=== PATIENT | male | born 1980 | race Caucasian/White ===

== ENCOUNTER 2019-03-07 17:45 | Emergency (ER) | payer SELFPAY ==
[2019-03-07] MEDS ORDERED: Ketorolac Tromethamine 60 MG/2 ML VIAL ONE (18:54)
--- NOTE | 2019-03-07 19:14 | CT ---
LUMBAR SPINE CT WITHOUT CONTRAST: Date: 03-07-19 Comparison: None. History: Injury, trauma, pain. Technique: Axial CT imaging at 2 mm intervals through the lumbar spine with coronal and sagittal refo rmatted imaging. FINDINGS: The imaged lung bases are unremarkable. At T9-10, T10-11, and T11-12 there is disc space narrowing with degenerative endplate change, vacuum disc formation, and posterior osteophyte. Evaluation for central canal and/or neural foraminal stenos is is limited on routine CT examination. Lumbar vertebral body height and alignment appears normal. T12-L1: No osseous cause of significant central canal or neural foraminal stenosis. L1-2: No osseous cause of significant central canal or neural foraminal stenosis. L2-3: No osseous cause of significant central canal or neural foraminal stenosis. L3-4: Mild bilateral facet hypertrophy. No osseous cause of significant central canal or neural leonie inal stenosis. L4-5: Mild bilateral facet hypertrophy with no osseous cause of significant central canal or neural f oraminal stenosis. L5-S1: Mild bilateral facet hypertrophy. No osseous cause of significant central canal or neural fora migue stenosis. No acute fracture or dislocation. IMPRESSION: No acute osseous abnormality. POS: OFF
--- NOTE | 2019-03-07 19:34 | CT ---
CT ABDOMEN AND PELVIS WITHOUT CONTRAST: Date: 03-07-19 Comparison: None. History: Injury. Technique: Axial CT imaging at 5 mm intervals through the abdomen and pelvis without contrast. Minaya l reformatted imaging obtained. FINDINGS: Assessment is limited in the setting of trauma without contrast media. Evaluation of the viscera, bow el, vascular structures and for lymphadenopathy is suboptimal. The imaged lung bases are unremarkable. No free intraperitoneal air is seen. There is a tiny hypodensity in the anterior aspect of the liver on Image 12, too small to characteriz e. The spleen, gallbladder, pancreas, adrenal glands, and kidneys demonstrate no acute findings. Ther e are two nonobstructing stones in the lower pole of the left kidney, measuring up to approximately 4 mm. No evidence for obstructive uropathy is appreciated on either side. Limited assessment of the bowel d emonstrates no acute findings. Review of the osseous structures demonstrates no acute findings. IMPRESSION: 1. No acute findings. Incidental findings as detailed above. POS: OFF
== END 2019-03-07 19:12 | disposition home or self-care (01) ==
LOC: MADERS 17:45
DX: S30.0XXA Contusion of lower back and pelvis, initial encounter (principal); I10 Essential (primary) hypertension; G43.909 Migraine, unspecified, not intractable, without status migrainosus; F31.9 Bipolar disorder, unspecified; F90.9 Attention-deficit hyperactivity disorder, unspecified type; F43.10 Post-traumatic stress disorder, unspecified; F17.210 Nicotine dependence, cigarettes, uncomplicated; Z79.899 Other long term (current) drug therapy; W19.XXXA Unspecified fall, initial encounter; Y92.000 Kitchen of unspecified non-institutional (private) residence as the place of occurrence of the external cause
CPT/HCPCS: 72131; 74176; 96372; J1885

== ENCOUNTER 2024-05-18 06:42 | Emergency (ER) | payer OTHER, SELFPAY ==
[2024-05-18 08:11] LABS: Hematocrit 50.4 % (42.0-52.0); Hemoglobin 15.9 g/dL (14.0-18.0); Manual Diff?? YES; Mean Corpuscular HGB CONC 31.5 g/dL (32.0-36.0); Mean Corpuscular Hemoglobin 28.1 pg (27.0-31.0); Mean Corpuscular Volume 89.1 fl (78.0-98.0); Mean Platelet Volume 6.9 fL (7.4-10.4); Platelet Count 304 10x3/uL (130-400); RBC Distribution Width 12.3 % (11.5-14.5); Red Blood Cell (RBC) Count 5.66 mill/uL (4.70-6.10); White Blood Cell (WBC) Count 9.2 10x3/uL (4.8-10.8)
[2024-05-18 08:12] LABS: Band 2 % (5-11); Eosinophils 3 % (0-10); Lymphocytes 26 % (21-51); MDiff Complete? YES; Monocytes 5 % (0-10); Neutrophil 64 % (42-75); Platelet Adequacy Comment Appears Adequate; RBC Morph Comment Within Normal Limits
[2024-05-18 08:16] LABS: ALT (SGPT) 30 U/L (8-55); AST (SGOT) 33 U/L (5-34); Albumin 4.3 g/dL (3.5-5.0); Alkaline Phosphatase 91 U/L (40-110); Anion Gap 16 mmol/L (10-20); BUN (Urea Nitrogen) 25 mg/dL (8.9-20.6); Bilirubin, Total 0.4 mg/dL (0.2-1.2); CK (CPK) 160 U/L (30-200); Calc. Creatinine Clearance 0 mL/min (70-130); Calcium 10.5 mg/dL (7.8-10.44); Carbon Dioxide 21 mmol/L (22-29); Chloride 103 mmol/L (98-107); Estimated GFR 100; Globulin 3.6 g/dL (2.4-3.5); Glucose 153 mg/dL (70-105); Magnesium 2.1 mg/dL (1.6-2.6); Potassium 5.1 mmol/L (3.5-5.1); Protein, Total 7.9 g/dL (6.0-8.3); Sodium 135 mmol/L (136-145)
[2024-05-18 08:19] LABS: Phosphorus 3.4 mg/dL (2.3-4.7)
[2024-05-18] MEDS ORDERED: Sodium Chloride 0.9% 1,000 ML ONE (08:26)
== END 2024-05-18 09:38 | disposition home or self-care (01) ==
LOC: MADERS 06:42
DX: E86.0 Dehydration (principal); I10 Essential (primary) hypertension; F17.210 Nicotine dependence, cigarettes, uncomplicated
CPT/HCPCS: 71045; 80053; 82550; 83735; 84100; 85025; 93005; 96360; J7050

== ENCOUNTER 2024-06-27 15:21 | Emergency (ER) | payer OTHER ==
[2024-06-27] MEDS ORDERED: Bacitracin 1 PK ONE (15:45)
[2024-06-27] MEDS ORDERED: Boostrix 0.5 ML (Tdap) VIAL (>/=7 yrs of age) ONE (16:13)
== END 2024-06-27 16:32 ==
LOC: MADERS 15:21
DX: S50.812A Abrasion of left forearm, initial encounter (principal); I10 Essential (primary) hypertension; Z87.891 Personal history of nicotine dependence; W22.8XXA Striking against or struck by other objects, initial encounter
CPT/HCPCS: 90471; 90715

== ENCOUNTER 2024-12-01 21:50 | Emergency (ER) | payer SELFPAY ==
[2024-12-01] MEDS ORDERED: Ibuprofen 800 MG TAB ONE (22:15)
[2024-12-01] MEDS ORDERED: Benzonatate 100 MG CAP ONE (22:15)
== END 2024-12-01 22:37 | disposition home or self-care (01) ==
LOC: MADERS 21:50
DX: J06.9 Acute upper respiratory infection, unspecified (principal); I10 Essential (primary) hypertension; Z87.891 Personal history of nicotine dependence
CPT/HCPCS: 87428; 99283

== ENCOUNTER 2025-01-08 19:59 | Emergency (ER) | payer OTHER, SELFPAY ==
[2025-01-08] MEDS ORDERED: Nitroglycerin 0.4 MG TAB 1 EACH ONE (20:13)
[2025-01-08] MEDS ORDERED: Aspirin Chewable 81 MG TAB ONE (20:14)
[2025-01-08 20:26] LABS: #Basophils 0.1 thou/uL (0.0-0.2); #Eosinophils 0.3 thou/uL (0.0-0.7); #Lymphocytes 3.1 thou/uL (1.20-3.40); #Monocytes 0.9 thou/uL (0.11-0.59); #Neutrophils 6.3 thou/uL (1.40-6.50); %Basophils 0.8 % (0.0-1.0); %Eosinophils 3.1 % (0.0-10.0); %Lymphocytes 28.8 % (21.0-51.0); %Monocytes 8.8 % (0.0-10.0); %Neutrophils 58.6 % (42.0-75.0); Hematocrit 45.8 % (42.0-52.0); Hemoglobin 14.9 g/dL (14.0-18.0); Mean Corpuscular HGB CONC 32.5 g/dL (32.0-36.0); Mean Corpuscular Hemoglobin 28.7 pg (27.0-31.0); Mean Corpuscular Volume 88.2 fl (78.0-98.0); Platelet Count 280 10x3/uL (130-400); RBC Distribution Width 11.8 % (11.5-14.5); White Blood Cell (WBC) Count 10.8 10x3/uL (4.8-10.8)
[2025-01-08 20:48] LABS: Troponin I Less than 0.010 ng/mL (< 0.028)
[2025-01-08 20:51] LABS: ALT (SGPT) 25 U/L (Less than 45); AST (SGOT) 15 U/L (11-34); Albumin 4.1 g/dL (3.1-4.5); Alkaline Phosphatase 76 U/L (40-110); Anion Gap 14 mmol/L (10-20); BUN (Urea Nitrogen) 16 mg/dL (8.9-20.6); Bilirubin, Total 0.2 mg/dL (0.3-1.2); Calc. Creatinine Clearance 0 mL/min (70-130); Calcium 10.3 mg/dL (7.8-10.44); Carbon Dioxide 21 mmol/L (22-29); Chloride 110 mmol/L (98-107); Estimated GFR 53; Globulin 2.9 g/dL (2.4-3.5); Glucose 124 mg/dL (70-105); Lipase 16 U/L (8-78); Potassium 4.3 mmol/L (3.5-5.1); Sodium 141 mmol/L (136-145)
[2025-01-08] MEDS ORDERED: Lidocaine 4% Patch ONE (20:53)
[2025-01-08] MEDS ORDERED: Acetaminophen 500 MG TAB ONE (20:53)
[2025-01-08 21:22] LABS: Bilirubin Negative (Negative); Blood, Urine Negative (Negative); Glucose, Urine (Dipstick) Negative (Negative); Ketone, Urine Negative (Negative); Leukocyte Negative (Negative); Nitrite Negative (Negative); Protein, Urine (Dipstick) Negative (Neg-Trace); Urobilinogen 0.2 mg/dL (Less than 2)
[2025-01-08 21:23] LABS: Bacteria/HPF 1+ HPF (None Seen); CAUTI Indications for Culture Pelvic or flank pain; Clarity Turbid (Clear); RBC/HPF None Seen HPF (0-3); Squamous Epithelial 0-3 HPF (0-3); WBC/HPF 0-3 HPF (0-3)
[2025-01-08 21:24] LABS: Urine Culture Reflex No No
== END 2025-01-08 22:02 | disposition home or self-care (01) ==
LOC: MADERS 19:59
DX: R07.81 Pleurodynia (principal); R79.89 Other specified abnormal findings of blood chemistry; I10 Essential (primary) hypertension; Z87.891 Personal history of nicotine dependence
CPT/HCPCS: 36415; 71046; 80053; 81001; 82550; 83690; 84484; 85025; 93005; 94760

== ENCOUNTER 2025-06-23 04:37 | Emergency (ER) | payer OTHER ==
[2025-06-23] MEDS ORDERED: Benzonatate 100 MG CAP ONE (05:04)
[2025-06-23 05:22] LABS: #Basophils 0.1 thou/uL (0.0-0.2); #Eosinophils 0.3 thou/uL (0.0-0.7); #Lymphocytes 3.0 thou/uL (1.20-3.40); #Monocytes 0.7 thou/uL (0.11-0.59); #Neutrophils 4.5 thou/uL (1.40-6.50); %Basophils 1.0 % (0.0-1.0); %Eosinophils 3.0 % (0.0-10.0); %Lymphocytes 34.8 % (21.0-51.0); %Monocytes 8.0 % (0.0-10.0); %Neutrophils 53.2 % (42.0-75.0); Hematocrit 48.4 % (42.0-52.0); Hemoglobin 15.7 g/dL (14.0-18.0); Mean Corpuscular Hemoglobin 28.2 pg (27.0-31.0); Mean Corpuscular Volume 87.0 fl (78.0-98.0); Platelet Count 309 10x3/uL (130-400); Red Blood Cell (RBC) Count 5.56 mill/uL (4.70-6.10); White Blood Cell (WBC) Count 8.5 10x3/uL (4.8-10.8)
[2025-06-23 05:36] LABS: ALT (SGPT) 26 U/L (Less than 45); AST (SGOT) 20 U/L (11-34); Albumin 4.1 g/dL (3.1-4.5); Alkaline Phosphatase 69 U/L (40-110); Anion Gap 15 mmol/L (10-20); BUN (Urea Nitrogen) 14 mg/dL (8.9-20.6); Bilirubin, Total 0.3 mg/dL (0.3-1.2); Calc. Creatinine Clearance 0 mL/min (70-130); Calcium 9.8 mg/dL (7.8-10.44); Carbon Dioxide 21 mmol/L (22-29); Chloride 109 mmol/L (98-107); Globulin 2.9 g/dL (2.4-3.5); Glucose 137 mg/dL (70-105); Potassium 4.5 mmol/L (3.5-5.1); Sodium 140 mmol/L (136-145)
== END 2025-06-23 06:02 | disposition home or self-care (01) ==
LOC: MADERS 04:37
DX: J20.8 Acute bronchitis due to other specified organisms (principal); B97.89 Other viral agents as the cause of diseases classified elsewhere; I10 Essential (primary) hypertension; Z87.891 Personal history of nicotine dependence; Z79.899 Other long term (current) drug therapy
CPT/HCPCS: 71046; 80053; 85025; 87070; 87081; 87205; 87426; 87430; 94640; 94760; 96361; 96374; J2919; J7030; J7620

== ENCOUNTER 2025-09-15 06:29 | Emergency (ER) | payer OTHER ==
[2025-09-15] MEDS ORDERED: Dexamethasone 10 MG/ML VIAL ONE (06:43)
== END 2025-09-15 07:58 | disposition home or self-care (01) ==
LOC: MADERS 06:29
DX: J40 Bronchitis, not specified as acute or chronic (principal); I10 Essential (primary) hypertension; Z79.899 Other long term (current) drug therapy; Z87.891 Personal history of nicotine dependence
CPT/HCPCS: 71045; J1100